=== PATIENT | male | born 1955 | race Caucasian/White ===

== ENCOUNTER 2018-01-22 16:31 | Emergency (ER) | payer MEDICAID, SELFPAY ==
[2018-01-22] VITALS (21 sets, daily range): BP systolic 143–165; BP diastolic 91–117; PULSE 56–98; RESP 13–33; TEMP 36.1–36.7; O2SAT 98–99
[2018-01-22 17:22] LABS: Abs Immature Grans 0.08 k/cumm (0.0-0.09); Absolute Eosinophil Count 0.18 k/cumm (0.0-0.7); Absolute Lymphocyte Count 1.48 k/cumm (1.2-3.4); Basophils % 0.1; Eosinophils % 1.3; HCT 42.6 % (40.0-50.0); HGB 13.8 g/dL (13.5-17.5); Immature Grans % 0.6; Lymphocytes % 10.8; Mean Corp. HGB Concentration 32.4 g/dL (32.0-36.0); Mean Corpuscular Hemoglobin 28.9 pg (27.0-33.0); Mean Corpuscular Volume 89.3 fL (80-95); Mean Platelet Volume 10.3 fL (8.0-11.0); Monocytes % 6.6; Neutrophils % 80.6; Platelet Count 248 x1000/uL (130-400); RBC 4.77 m/cumm (4.50-6.00); RBC Distribution Width 15.2 % (11.8-14.1); White Blood Cell Count 13.67 k/cumm (4.4-10.8)
[2018-01-22 17:31] LABS: ALT 49 U/L (12-78); AST 31 U/L (15-37); Albumin 3.5 g/dL (3.4-5.0); Alkaline Phosphatase 142 U/L (46-116); Anion Gap 7.8 mmol/L (3-11); BUN 19 mg/dL (7-18); Bilirubin, Total 0.6 mg/dL (0.2-1.0); CO2 30.2 mmol/L (21.0-32.0); CREATININE 1.05 mg/dL (0.70-1.30); Calcium 8.8 mg/dL (8.5-10.1); Chloride 105 mmol/L (98-107); Potassium 3.2 mmol/L (3.5-5.1); Sodium 143 mmol/L (136-145)
[2018-01-22 17:33] LABS: Glucose 39 mg/dL (70-100)
[2018-01-22 17:42] LABS: Absolute Basophil Count 0.01 k/cumm (0.0-0.2); Absolute Neutrophil Count 11.02 k/cumm (1.2-6.7)
[2018-01-22] MEDS: Dextrose 50%-Water 25 GM/50 ML SYR IVP (17:52)
--- NOTE | 2018-01-22 18:51 | NUR.NOTE ---
Glucose check at 1805 = 155. Dr. Murphy notified.Nursing Note:
[2018-01-22] MEDS: POTASSIUM CHLORIDE 20 MEQ/100 ML BAG 50 MEQ IVPB (18:57)
--- NOTE | 2018-01-22 19:27 | NUR.NOTE ---
Patient was given OJ 240cc at 1650, 1710, and again at 1915 with supperNursing Note:
[2018-01-22] MEDS: Potassium Chloride 10 MEQ TABCR 20 MEQ PO (21:40)
--- NOTE | 2018-01-22 21:40 | ED.GENADUL_ITS ---
Discharge Plan Disposition Patient Disposition: HOME Condition: Improving Discharge Details Chief Complaint: AMS/LOC Clinical Impression: Hypoglycemia, Hypokalemia Primary Care Provider: TANISHALOCAL ED Provider: Chito Murphy Home Meds and New Rx's Prescriptions: Continue losartan 50 mg Tablet 50 mg PO DAILY RF: 0 atorvastatin 20 mg Tablet 20 mg PO DAILY RF: 0 melatonin 3 mg Tablet 3 mg PO DAILY RF: 0 spironolactone 25 mg Tablet 25 mg PO DAILY RF: 0 furosemide 80 mg Tablet 80 mg PO BID RF: 0 insulin aspart U-100 [Novolog U-100 Insulin aspart] 100 unit/mL Solution 25 units subcut TID RF: 0 niacin 500 mg Tablet 500 mg PO DAILY RF: 0 diltiazem HCl 120 mg Capsule,Extended Release 24hr 120 mg PO DAILY RF: 0 magnesium 250 mg Tablet 400 mg PO DAILY RF: 0 doxazosin 2 mg Tablet 2 mg PO DAILY RF: 0 insulin detemir U-100 [Levemir U-100 Insulin] 100 unit/mL Solution 50 units subcut BID RF: 0 rivaroxaban [Xarelto] 20 mg Tablet 1 tab PO DAILY RF: 0 cholecalciferol (vitamin D3) [Vitamin D3] 4,000 unit Capsule 4,000 unit PO DAILY RF: 0 potassium chloride 20 mEq Tablet Extended Release 40 meq PO BID RF: 0 metoprolol tartrate 100 mg Tablet 150 mg PO BID Qty: 30 RF: 0 Discharge Instructions Instructions: Hypokalemia (ED), Diabetic Hypoglycemia (ED) Additional Instructions: Please follow-up with your doctor. Call tomorrow to discuss your insulin dosing and other medications. Monitor your blood sugar closely over the next week. Your blood sugar is low be sure to take some sugar by mouth. Please contact your primary care physician to arrange follow-up. Return to the ER for any worsening or new concerning symptoms. Discharge Data Discharge Date/Time-TO BE ENTERED AT DEPARTURE: 01/22/18 22:25 Medical Decision Making MDM Narrative Medical decision making narrative: 62yo m with insulin-dependent diabetes here with altered mentation hypoglycemia. Blood sugar 39 initially. Patient administered amp of D50 and full meal. Sugar improved and remained elevated on multiple reassessment. Suspect accidental insulin overdose. Reviewed insulin dosing with the patient and advised him to call his primary care physician tomorrow to discuss ongoing dosing. He was instructed to check his fingersticks frequently over the next week and monitor his blood sugar closely. Labs reviewed and mild hypokalemia noted. Patient treated with oral potassium replacement. Patient was reassessed multiple times remained clinically stable and now improved. Usual and customary discharge instructions were provided the patient and questions were addressed. Patient verbalized understanding that he should follow-up with his primary care physician tomorrow and that he may return to the emergency department at any point for any worsening or new concerning symptoms. Lab Data Lab results reviewed: Yes I reviewed the patient's lab results. Lab Results 01/22/18 01/22/18 01/22/18 Range/Units 17:00 17:00 20:47 WBC 13.67 H (4.4-10.8) k/cumm RBC 4.77 (4.50-6.00) m/cumm Hgb 13.8 (13.5-17.5) g/dL Hct 42.6 (40.0-50.0) % MCV 89.3 (80-95) fL MCH 28.9 (27.0-33.0) pg MCHC 32.4 (32.0-36.0) g/dL RDW 15.2 H (11.8-14.1) % Plt Count 248 (130-400) x1000/uL MPV 10.3 (8.0-11.0) fL Immature Gran % 0.6 Neutrophils % 80.6 Lymphocytes % 10.8 Monocytes % 6.6 Eosinophils % 1.3 Basophils % 0.1 Absolute Neutrophils 11.02 H (1.2-6.7) k/cumm Absolute Lymphocytes 1.48 (1.2-3.4) k/cumm Absolute Monocytes 0.90 H (0.11-0.7) k/cumm Absolute Eosinophils 0.18 (0.0-0.7) k/cumm Absolute Basophils 0.01 (0.0-0.2) k/cumm Sodium 143 (136-145) mmol/L Potassium 3.2 L (3.5-5.1) mmol/L Chloride 105 (98-107) mmol/L Carbon Dioxide 30.2 (21.0-32.0) mmol/L Anion Gap 7.8 (3-11) mmol/L BUN 19 H (7-18) mg/dL Creatinine 1.05 (0.70-1.30) mg/dL Estimated GFR/1.73 m2 >= 60.00 (mL/min/1.73m2) Glucose 39 L (70-100) mg/dL POC Glucose Cancelled Cancelled Calcium 8.8 (8.5-10.1) mg/dL Total Bilirubin 0.6 (0.2-1.0) mg/dL AST 31 (15-37) U/L ALT 49 (12-78) U/L Alkaline Phosphatase 142 H (46-116) U/L Total Protein 8.0 (6.4-8.2) g/dL Albumin 3.5 (3.4-5.0) g/dL 01/22/18 Range/Units 21:23 WBC (4.4-10.8) k/cumm RBC (4.50-6.00) m/cumm Hgb (13.5-17.5) g/dL Hct (40.0-50.0) % MCV (80-95) fL MCH (27.0-33.0) pg MCHC (32.0-36.0) g/dL RDW (11.8-14.1) % Plt Count (130-400) x1000/uL MPV (8.0-11.0) fL Immature Gran % Neutrophils % Lymphocytes % Monocytes % Eosinophils % Basophils % Absolute Neutrophils (1.2-6.7) k/cumm Absolute Lymphocytes (1.2-3.4) k/cumm Absolute Monocytes (0.11-0.7) k/cumm Absolute Eosinophils (0.0-0.7) k/cumm Absolute Basophils (0.0-0.2) k/cumm Sodium (136-145) mmol/L Potassium (3.5-5.1) mmol/L Chloride (98-107) mmol/L Carbon Dioxide (21.0-32.0) mmol/L Anion Gap (3-11) mmol/L BUN (7-18) mg/dL Creatinine (0.70-1.30) mg/dL Estimated GFR/1.73 m2 (mL/min/1.73m2) Glucose (70-100) mg/dL POC Glucose Cancelled Calcium (8.5-10.1) mg/dL Total Bilirubin (0.2-1.0) mg/dL AST (15-37) U/L ALT (12-78) U/L Alkaline Phosphatase (46-116) U/L Total Protein (6.4-8.2) g/dL Albumin (3.4-5.0) g/dL HPI - General Adult General Date/Time Provider Initiated Documentation: 01/22/18 16:53 . Limitations to Documentation: no limitations . Information obtained by: patient . HPI Narrative: 62-year-old male presents with chief complaint of confusion. Symptoms are moderate with no modifiers patient believes his blood sugar is low. Patient states that he just feels off. Has been taking his insulin as prescribed but may have accidentally taken the wrong insulin and has not had a significant amount eat today. Patient denies pain. No trauma. Related Data Home Medications Medication Instructions Recorded Confirmed atorvastatin 20 mg PO DAILY 01/22/18 01/22/18 cholecalciferol (vitamin D3) 4,000 unit PO DAILY 01/22/18 01/22/18 [Vitamin D3] diltiazem HCl 120 mg PO DAILY 01/22/18 01/22/18 doxazosin 2 mg PO DAILY 01/22/18 01/22/18 furosemide 80 mg PO BID 01/22/18 01/22/18 insulin aspart U-100 [Novolog 25 units SUBCUT TID 01/22/18 01/22/18 U-100 Insulin aspart] insulin detemir U-100 [Levemir 50 units SUBCUT BID 01/22/18 01/22/18 U-100 Insulin] losartan 50 mg PO DAILY 01/22/18 01/22/18 magnesium 400 mg PO DAILY 01/22/18 01/22/18 melatonin 3 mg PO DAILY 01/22/18 01/22/18 niacin 500 mg PO DAILY 01/22/18 01/22/18 potassium chloride 40 meq PO BID 01/22/18 01/22/18 rivaroxaban [Xarelto] 1 tab PO DAILY 01/22/18 01/22/18 spironolactone 25 mg PO DAILY 01/22/18 01/22/18 Previous Rx's Medication Instructions Recorded metoprolol tartrate 150 mg PO BID #30 tab 01/22/18 Allergies Allergy/AdvReac Type Severity Reaction Status Date / Time lisinopril Allergy Severe Swelling/Ed Unverified 01/22/18 17:16 eh General Stated Complaint: AMS/LOC STUART: 2 Review of Systems Review of Systems All systems reviewed & are unremarkable except as noted in HPI and below Constitutional Reports fatigue Respiratory Denies cough Genitourinary Denies dysuria Neurologic Reports confusion Psychiatric Reports confusion Endocrine Reports fatigue PFSH Medical History Diabetes (Chronic) Social History Smoking/Tobacco Use Status: Never Exam Const General: cooperative and no acute distress HENMT Head: normocephalic and atraumatic Mouth: moist mucous membranes Eyes Conjunctivae: normal conjunctivae Sclera: normal sclerae EOM: EOM intact bilaterally Neck Neck: trachea midline and supple Resp Auscultation: clear to auscultation bilaterally, no rales, no rhonchi and no wheezes Cardio Jugular venous pressure: no JVD Rate: regular rate and not tachycardic Rhythm: regular rhythm GI Palpation: soft, not firm, no guarding, no masses, not rigid and nontender Skin General skin exam: no rashes or lesions noted Neuro General: alert, awake, tone normal, no meningeal signs, no focal motor deficits and other (confused) Extrem General: no edema Psych Appearance: grossly normal Mental Status: mental status grossly normal Speech and Movement: speech and movement normal Course Vital Signs Temperature 36.1 C L 01/22/18 16:38 Pulse 56 L 01/22/18 16:38 Respiratory Rate 18 01/22/18 16:38 Pulse Oximetry 98 01/22/18 16:38 Temperature 36.1 C L 01/22/18 16:38 Pulse 56 L 01/22/18 16:38 Respiratory Rate 18 01/22/18 16:38 Pulse Oximetry 98 01/22/18 16:38
[2018-01-22] MEDS: Metoprolol 50 MG TAB 100 MG PO (21:54)
== END 2018-01-22 22:25 | disposition home or self-care (01) ==
PROVIDERS: Emergency Provider Student in an Organized Health Care Education/Training Program
DX: E11.649 Type 2 diabetes mellitus with hypoglycemia without coma (principal); E87.6 Hypokalemia; Z79.4 Long term (current) use of insulin
CPT/HCPCS: 36415; 36416; 80053; 82947; 82962; 96365; 99284; 85025; 99283; J3480